=== PATIENT | male | born 1970 | race Caucasian/White ===

== ENCOUNTER → 2020-05-06 16:36 | Outpatient (CLI) | payer BC, SELFPAY ==
--- NOTE | ~2020-05-06 | XR_ITS ---
XR foot RT min 3V, XR foot LT min 3V 05/06/2020 17:55 Indication: Foot pain. DJD. Procedure: 4 views of each foot Comparison: No prior studies for comparison. Findings: There is mild degenerative change of the midfoot bilaterally. Small calcaneal enthesophytes at the Achilles insertion. No fracture or traumatic malalignment. Lisfranc joint is intact bilateral ly. Osteopenia. No focal soft tissue abnormality. No foreign bodies. Impression: 1: Mild polyarticular osteoarthritis. Reviewed, dictated and finalized at location A. [employer] Impression: 1: Mild polyarticular osteoarthritis. Impression: 1: Mild polyarticular osteoarthritis.
== END ==
PROVIDERS: Visit Provider Podiatrist Foot & Ankle Surgery
DX: M19.072 Primary osteoarthritis, left ankle and foot (principal); M19.071 Primary osteoarthritis, right ankle and foot
CPT/HCPCS: 73630